=== PATIENT | male | born 1995 | race Caucasian/White ===

== ENCOUNTER 2018-11-06 18:19 | Emergency (ER) | payer SELFPAY ==
[~2018-11-06] VITALS: Ht 190.5 cm; Wt 118.2 kg
[2018-11-06 18:27] VITALS: BP 142/65; TEMP 99.4
[2018-11-06 19:29] LABS: STREP SCREEN NEGATIVE
[2018-11-06 20:15] VITALS: PULSE 72
== END 2018-11-06 20:15 | disposition home or self-care (01) ==
LOC: COL.ER 18:19
PROVIDERS: Nurse Practitioner
DX: J06.9 Acute upper respiratory infection, unspecified (principal)

== ENCOUNTER → 2019-05-26 | Outpatient (CLI) | payer OTHER | LOC: COL.RAD 12:49 | DX: M25.512 Pain in left shoulder (principal) | CPT/HCPCS: A9585; Q9967 ==

== ENCOUNTER → 2019-07-04 | Outpatient (CLI) | payer BC, OTHER ==
[2019-07-04 18:19] LABS: HIV 1/2 Antibodies Non-Reactive; HIV-1p24 Antigen Non-Reactive
[2019-07-05 18:04] LABS: HEPATITIS B SURFACE ANTIBODY <2.0 (()); HEPATITIS B SURFACE ANTIGEN Negative (Negative); HEPATITIS C VIRUS ANTIBODY Negative (Negative)
== END ==
LOC: ZCOL.LAB 17:28
PROVIDERS: Orthopaedic Surgery
DX: Z01.89 Encounter for other specified special examinations (principal)